=== PATIENT | female | born 1965 ===

== ENCOUNTER → 2016-07-30 | Outpatient (REF) | LOC: ZLAB.WCH 13:54 | DX: Z01.89 Encounter for other specified special examinations (principal) ==

== ENCOUNTER → 2016-08-06 | Outpatient (REF) | LOC: ZLAB.WCH 20:23 | DX: Z01.89 Encounter for other specified special examinations (principal) ==

== ENCOUNTER → 2016-08-13 | Outpatient (REF) | LOC: ZLAB.WCH 20:38 | DX: Z01.89 Encounter for other specified special examinations (principal) ==

== ENCOUNTER → 2016-08-20 | Outpatient (REF) | LOC: ZLAB.WCH 18:52 | DX: Z01.89 Encounter for other specified special examinations (principal) ==

== ENCOUNTER → 2016-08-27 | Outpatient (REF) | LOC: ZLAB.WCH 18:06 | DX: Z01.89 Encounter for other specified special examinations (principal) ==

== ENCOUNTER → 2016-09-04 | Outpatient (REF) | LOC: ZLAB.WCH 18:15 | DX: Z01.89 Encounter for other specified special examinations (principal) ==

== ENCOUNTER → 2016-09-10 | Outpatient (REF) | LOC: ZLAB.WCH 18:03 | DX: Z01.89 Encounter for other specified special examinations (principal) ==